=== PATIENT | male | born 1985 | race Caucasian/White ===

== ENCOUNTER 2020-10-07 06:52 | Emergency (ER) | payer OTHER, SELFPAY ==
[~2020-10-07] VITALS: Ht 170.2 cm; Wt 74.8 kg
[2020-10-07 07:29] VITALS: BP_SYST 119
--- NOTE | 2020-10-07 07:34 | NUR ---
Patient to TENT 2 for evaluation. Side rails up.
--- NOTE | 2020-10-07 07:35 | NUR ---
ER at bedside examining patient.
[2020-10-07] MEDS ORDERED: IBUPROFEN 800 MG TABLET PO ONE (07:45)
--- NOTE | 2020-10-07 09:35 | NUR ---
Pt tlerated medication well,fever reducing.
[2020-10-07] MEDS ORDERED: IBUP-1971 PO (10:06)
[2020-10-07] MEDS ORDERED: PSEU30TA36 PO (10:06)
[2020-10-07 12:14] VITALS: BP_SYST 120
--- NOTE | 2020-10-07 12:14 | NUR ---
Patient given written and verbal discharge instructions and verbalizes understanding. ER MD discussed with patient the results and treatment provided. Patient in stable condition. ID arm band removed. Rx of hansel trinh given. Patient educated on pain management and to follow up with PMD. Pain Scale 2. Opportunity for questions provided and answered. Medication side effect fact sheet provided.
== END 2020-10-07 12:14 | disposition home or self-care (01) ==
LOC: SED 06:52
DX: J02.9 Acute pharyngitis, unspecified (principal); Z20.822 Contact with and (suspected) exposure to COVID-19
CPT/HCPCS: 36415; 86308-TC; 86403; 87081; 99283

== ENCOUNTER → 2021-03-02 | Emergency (ER) | payer OTHER, SELFPAY ==
[~2021-03-02] MED LIST: BACITRACIN 1 GM OINT TP ONE; DIPH-TET-PERTUS Vaccine 0.5 ML VIAL (ADACEL) I.M. ONE; IBUP-1971 PO; LIDOCAINE 1% 10 MG/ML, 20 ML MDV INJ ONE; PSEU30TA36 PO
--- NOTE | 2021-03-02 15:27 | NUR ---
BP 139/87 HR 67 O2 sat 99% No pain
== END | disposition home or self-care (01) ==
LOC: SED 11:43
DX: S61.211A Laceration without foreign body of left index finger without damage to nail, initial encounter (principal); W45.8XXA Other foreign body or object entering through skin, initial encounter; W26.8XXA Contact with other sharp object(s), not elsewhere classified, initial encounter; Y93.9 Activity, unspecified; Y92.9 Unspecified place or not applicable; Y99.9 Unspecified external cause status
CPT/HCPCS: 90715; 99282; 99283